=== PATIENT | male | born 2000 | race Caucasian/White ===

== ENCOUNTER 2021-04-06 23:13 | Emergency (ER) | payer OTHER ==
[~2021-04-06] VITALS: Ht 182.9 cm; Wt 81.8 kg
[2021-04-07 00:21] VITALS: BP 119/81; PULSE 89; TEMP 98.4
== END 2021-04-07 00:21 | disposition short-term general hospital (02) ==
LOC: COL.ER 23:13
DX: M54.6 Pain in thoracic spine (principal); R53.1 Weakness